=== PATIENT | male | born 1980 | race African-American/Black ===

== ENCOUNTER 2018-07-02 22:02 | Emergency (ER) | payer OTHER ==
--- NOTE | 2018-07-02 22:58 | ED ---
Neurological HPI - HPI Summary HPI Summary: This patient is a 38 year old M brought in by EMS and police [facility] after what the guards report as a seizure. They describe and extended post-ictal period. The guards state the patient has not been responsive since 2129 tonight. Upon inspection of the records provided by the [facility] the patient has a history of seizures and takes Keppra and dilantin. Level 5 Caveat: Exam limited due to the patient being unresponsive. - History of Current Complaint Chief Complaint: EDSeizure Stated Complaint: SEIZURE Hx Obtained From: Other: - see hpi Onset/Duration: Started hours ago, Still Present Timing: Constant Onset Severity: Moderate Current Severity: Moderate Pain Intensity: 0 Character: Other: - Level 5 Caveat: Exam limited due to the patient being unresponsive. - Allergy/Home Medications Allergies/Adverse Reactions: Allergies Allergy/AdvReac Type Severity Reaction Status Date / Time risperidone [From Risperdal] Allergy Unknown Verified 07/03/18 01:56 Reaction Details PMH/Surg Hx/FS Hx/Imm Hx Opthamlomology History: Denies: Hx Eye Prosthesis Neurological History: Reports: Hx Seizures Infectious Disease History: No Infectious Disease History: Denies: Traveled Outside the [place] in Last 30 Days - Family History Known Family History: Negative: Seizure Disorder - Social History Alcohol Use: None Hx Substance Use: No Substance Use Type: Reports: None Hx Tobacco Use: No Smoking Status (MU): Never Smoked Tobacco Review of Systems - ROS Summary Review of Systems Summary: Level 5 Caveat: Exam limited due to the patient being unresponsive. Neurological: Other - seizure. All Other Systems Reviewed And Are Negative: No Physical Exam - Summary Physical Exam Summary: VITAL SIGNS: Reviewed. GENERAL: Patient is a well-developed and nourished male HEAD AND FACE: No signs of trauma. No ecchymosis, hematomas or skull depressions. N EYES: PERRLA, EOMI x 2, No injected conjunctiva, no nystagmus. EARS: Ear canals and tympanic membranes are within normal limits. MOUTH: Oropharynx within normal limits. NECK: Supple, trachea is midline, no adenopathy, no JVD, no carotid bruit, no c- spine tenderness, neck with full ROM. CHEST: Symmetric, LUNGS: Clear to auscultation bilaterally. No wheezing or crackles. CVS: Regular rate and rhythm, S1 and S2 present, no murmurs or gallops appreciated. ABDOMEN: Soft,. No signs of distention. No rebound no guarding, and no masses palpated. Bowel sounds are normal. EXTREMITIES: FROM in all major joints, no edema, no cyanosis or clubbing. NEURO: Alert but is not answering questions. He is not following commands SKIN: Dry and warm Triage Information Reviewed: Yes Vital Signs On Initial Exam: Initial Vitals Temp Pulse Resp BP Pulse Ox 97.9 F 79 16 131/77 97 07/02/18 22:15 07/02/18 22:15 07/02/18 22:15 07/02/18 22:15 07/02/18 22:15 Vital Signs Reviewed: Yes Completion Of Physical Exam Limited Due To: Level 5 Diagnostics - Vital Signs Vital Signs Temp Pulse Resp BP Pulse Ox 07/02/18 22:15 97.9 F 79 16 131/77 97 - Laboratory Result Diagrams: 07/02/18 22:54 07/02/18 22:54 Lab Statement: Any lab studies that have been ordered have been reviewed, and results considered in the medical decision making process. Course/Dx - Course Assessment/Plan: This patient is a 38 year old M brought in by EMS and police [facility] after what the guards report as a seizure. They describe and extended post -ictal period. The guards state the patient has not been responsive since 2129. Upon inspection of the records provided by the penit[facility]iary the patient has a history of seizures and takes Keppra and dilantin. Level 5 Caveat: Exam limited due to the patient being unresponsive. No seizure activity in the ED . Therapeutic dilantin level, however recommend an increase to 300 BID. The patient did improve in the ED and was walking and talking without difficulty. Bloodwork, UA, and toxicology screen obtained. In the ED course the patient was given dilantin. Patient will be discharged and follow up from neurology. The patient is agreeable with this plan. - Diagnoses Provider Diagnoses: Seizure Discharge - Sign-Out/Discharge Documenting (check all that apply): Patient Departure - Discharge Plan Condition: Stable Disposition: HOME Patient Education Materials: Epilepsy (ED) Referrals: Aaliyah Gomez MD [Medical Doctor] - Additional Instructions: recommend increasing the dilantin dose to 300mg twice a day. Follow up with neurology tomorrow. RETURN TO THE EMERGENCY DEPARTMENT FOR CHANGING OR WORSENING SYMPTOMS. - Billing Disposition and Condition Condition: STABLE Disposition: Home - Attestation Statements Document Initiated by Tenzin: Yes Documenting Scribe: Latrell Montoya Provider For Whom Tenzin is Documenting (Include Credential): Luna Bautista MD Scribe Attestation: Latrell Sanchez , scribed for Luna Bautista MD on 07/03/18 at 0159. Scribe Documentation Reviewed: Yes Provider Attestation: The documentation as recorded by the Latrell adams accurately reflects the service I personally performed and the decisions made by meFranc MD Status of Scribe Document: Viewed
[2018-07-02 23:05] LABS: ABS Basophils 0 10^3/ul (0-0.2); ABS Eosinophils 0.1 10^3/ul (0-0.6); ABS Monocytes 0.5 10^3/ul (0-0.8); ABS Neutrophils 2.2 10^3/ul (1.5-7.7); ABS Nucleated RBC 0 10^3/ul; Eosinophil % 1.3 %; Hematocrit 40 % (42-52); Hemoglobin 13.6 g/dl (14.0-18.0); Lymphocyte % 41.7 %; Mean Corpuscular HGB Conc 34 g/dl (31-36); Mean Corpuscular Hemoglobin 32 pg (27-31); Mean Corpuscular Volume 97 fL (80-94); Mean Platelet Volume 7.3 fL (7.4-10.4); Nucleated Red Blood Cells % 0; Platelet Count 201 10^3/ul (150-450); Red Blood Count 4.19 10^6/ul (4.00-5.40); Red Cell Distribution Width 13 % (10.5-15); White Blood Count 4.7 10^3/ul (3.5-10.8)
[2018-07-02 23:13] LABS: INR 0.99 (0.77-1.02)
[2018-07-02 23:22] LABS: EGFR Non-African American 73.8 (>60)
[2018-07-03 01:14] LABS: Urine Appearance Cloudy; Urine Blood Negative (Negative); Urine Color Yellow; Urine Ketones Negative (Negative); Urine Protein Negative (Negative); Urine Specific Gravity 1.023 (1.010-1.030); Urine Urobilinogen Negative (Negative)
[2018-07-03] MEDS ORDERED: Phenytoin CAP(*) 100 MG CAP.ER PO ONE (01:32)
[2018-07-03 02:16] VITALS: BP 146/75
== END 2018-07-03 02:10 | disposition home or self-care (01) ==
LOC: ED 22:02
DX: G40.909 Epilepsy, unspecified, not intractable, without status epilepticus (principal); Z88.8 Allergy status to other drugs, medicaments and biological substances
CPT/HCPCS: 36415; 80053; 80185; 80307; 81003; 82550; 83605; 83735; 85025; 85610; 85730; 99282; A9270-GY

== ENCOUNTER → 2018-08-16 10:04 | Emergency (ER) | payer OTHER ==
--- NOTE | 2018-08-16 10:16 | ED ---
Neurological HPI - HPI Summary HPI Summary: 38 yo male presents to ED brought in by corrections. Pt tells me that he is unsure why he is here. He says that he went to take his morning meds at the provider's office and was told that his left eye was "weird" and was then told he had to come to the hospital. According to the call from the MEETING/EVENT PLANNER at the [facility], she was examining the pt and noticed some left eye nystagmus and pt seemed to stare into the distance without responding for one episode lasting 5-10 seconds. Pt does not recall any of this. He has no symptoms currently. At baseline he is wheelchair bound due to LE injury and inability to move his legs , however sensations are intact. He denies fever, recent illness, headache, dizziness, vision changes, SOB, chest pain, palpitations, abdominal pain, n/v/d/ c, dysuria, or drug use. Denies change in mood or behavior. No SI/HI. He tells me that he has a PMHx of seizures, right ear deafness, right eye "blindness", and [id number]-[id number]. - History of Current Complaint Stated Complaint: MHE Time Seen by Provider: 08/16/18 10:11 Hx Obtained From: Patient Current Severity: None - Allergy/Home Medications Allergies/Adverse Reactions: Allergies Allergy/AdvReac Type Severity Reaction Status Date / Time risperidone [From Risperdal] Allergy Unknown Verified 07/03/18 01:56 Reaction Details Home Medications: Home Medications Albuterol HFA INHALER* [Ventolin HFA Inhaler*] 2 puff INH QID PRN 08/16/18 [ History Confirmed 08/16/18] Beclomethasone 80 MCG MDI(NF) [Qvar 80 MCG MDI(NF)] 1 puff INH BID 08/16/18 [ History Confirmed 08/16/18] Docusate CAP* [Colace Cap*] 100 mg PO BID 08/16/18 [History Confirmed 08/16/18] Ibuprofen TAB* [Motrin TAB* 600 MG] 600 mg PO BID PRN 08/16/18 [History Confirmed 08/16/18] Phenytoin CAP(*) [Dilantin CAP(*)] 300 mg PO BID 08/16/18 [History Confirmed ] Zafirlukast (NF) [Accolate (NF)] 20 mg PO BID 08/16/18 [History Confirmed ] levETIRAcetam TAB* [Keppra TAB*] 1,500 mg PO BID 08/16/18 [History Confirmed ] PMH/Surg Hx/FS Hx/Imm Hx Endocrine/Hematology History: Denies: Hx Blood Disorders, Hx Diabetes Cardiovascular History: Denies: Hx Coronary Artery Disease, Hx Hypertension, Hx Myocardial Infarction Respiratory History: Denies: Hx Asthma, Hx Chronic Obstructive Pulmonary Disease (COPD) History: Denies: Hx Renal Disease Musculoskeletal History: Reports: Other Musculoskeletal History - Wheelchair bound. Cannot move LEs Sensory History: Reports: Hx Legally Blind - right eye, Hx Hearing Problem - right ear Denies: Hx Eye Prosthesis Opthamlomology History: Denies: Hx Eye Prosthesis Neurological History: Reports: Hx Seizures, Other Neuro Impairments/Disorders - CMT Denies: Hx CVA, Hx Headaches, Hx Migraine - Family History Known Family History: Negative: Seizure Disorder - Social History Alcohol Use: None Hx Substance Use: No Substance Use Type: Reports: None Hx Tobacco Use: No Smoking Status (MU): Never Smoked Tobacco Review of Systems Constitutional: Negative Eyes: Negative ENT: Negative Cardiovascular: Negative Respiratory: Negative Gastrointestinal: Negative Genitourinary: Negative Musculoskeletal: Negative Skin: Negative Neurological: Negative Psychological: Normal All Other Systems Reviewed And Are Negative: Yes Physical Exam - Summary Physical Exam Summary: GENERAL: NAD. WDWN. Comfortably lying in stretcher watching TV. SKIN: No rashes, sores, ulcers, masses, lesions. HEENT: Head: AT/NC. No raccoon eyes or battles sign. Eyes: PERRLA. EOM intact. Conjunctiva clear without inflammation or discharge. Ears: Hearing grossly normal. TMs intact, no bulging, erythema, or edema. Nose: Nasal mucosa pink and moist. NTTP maxillary and frontal sinus. Throat: Posterior oropharynx without exudates, erythema, or tonsillar enlargement. Uvula midline. NECK: Supple. Nontender. No lymphadenopathy. CHEST: CTAB. No r/r/w. No accessory muscle use. Breathing comfortably and in no distress. CV: RRR. Without m/r/g. Pulses intact. Brisk cap refill. MSK: FROM in B/L UEs NEURO: A&Ox3. 3 word recall, remote, recent memory, ability to follow 2-step directions, and attention intact. CN: II: Peripheral lynn intact LEFT EYE. Vision normal LEFT EYE. III, IV, : EOMI. LEFT EYE mild horizontal nystagmus. PERRLA. V: Sensations intact and symmetric. Opens mouth and clenches teeth. VII: No facial asymmetry. Forehead wrinkles. Grins, shuts eyes, frowns, puffs cheeks. VIII: Hearing intact to finger rub. IX, X: Swallows and coughs. Uvula midline. XI: Shrugs shoulders. Turns head against resistance. XII: No tongue deviation Finger -to-nose are intact. Gait with normal base. Romberg: maintains balance, no pronator drift. Normal speech. No facial drooping. PSYCH: Age appropriate behavior. GCS 15 Triage Information Reviewed: Yes Vital Signs On Initial Exam: Vital Signs: Temp Pulse Resp BP Pulse Ox 97.8 F 69 16 119/70 98 08/16/18 10:16 08/16/18 10:16 08/16/18 10:16 08/16/18 10:16 08/16/18 10:16 Laboratory Tests 08/16/18 08/16/18 08/16/18 11:05 11:13 11:13 WBC 6.9 RBC 4.33 Hgb 14.0 Hct 42 MCV 96 H MCH 32 H MCHC 34 RDW 13 Plt Count 218 MPV 7.3 L Neut % (Auto) 62.9 Lymph % (Auto) 23.8 Bates % (Auto) 10.4 Eos % (Auto) 1.6 Baso % (Auto) 1.3 Absolute Neuts (auto) 4.3 Absolute Lymphs (auto) 1.6 Absolute Monos (auto) 0.7 Absolute Eos (auto) 0.1 Absolute Basos (auto) 0.1 Absolute Nucleated RBC 0 Nucleated RBC % 0 Sodium 140 Potassium 4.6 Chloride 108 Carbon Dioxide 29 Anion Gap 3 BUN 8 Creatinine 1.05 Est GFR ( Amer) 96.2 Est GFR (Non-Af Amer) 79.5 BUN/Creatinine Ratio 7.6 L Glucose 91 Calcium 9.0 Total Bilirubin 0.40 AST 25 ALT 36 Alkaline Phosphatase 57 Total Protein 6.9 Albumin 4.0 Globulin 2.9 Albumin/Globulin Ratio 1.4 Salicylates < 2.50 Urine Opiates Screen Ur Barbiturates Screen Phenytoin < 2.5 L Ur Phencyclidine Scrn Ur Amphetamines Screen U Benzodiazepines Scrn Urine Cocaine Screen U Cannabinoids Screen 08/16/18 13:00 WBC RBC Hgb Hct MCV MCH MCHC RDW Plt Count MPV Neut % (Auto) Lymph % (Auto) Bates % (Auto) Eos % (Auto) Baso % (Auto) Absolute Neuts (auto) Absolute Lymphs (auto) Absolute Monos (auto) Absolute Eos (auto) Absolute Basos (auto) Absolute Nucleated RBC Nucleated RBC % Sodium Potassium Chloride Carbon Dioxide Anion Gap BUN Creatinine Est GFR ( Amer) Est GFR (Non-Af Amer) BUN/Creatinine Ratio Glucose Calcium Total Bilirubin AST ALT Alkaline Phosphatase Total Protein Albumin Globulin Albumin/Globulin Ratio Salicylates Urine Opiates Screen None detected Ur Barbiturates Screen None detected Phenytoin Ur Phencyclidine Scrn None detected Ur Amphetamines Screen None detected U Benzodiazepines Scrn None detected Urine Cocaine Screen None detected U Cannabinoids Screen None detected Vital Signs Reviewed: Yes Diagnostics - Laboratory Result Diagrams: 08/16/18 11:13 08/16/18 11:13 Lab Statement: Any lab studies that have been ordered have been reviewed, and results considered in the medical decision making process. 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 Facial Paresis-Pt to Smile & Close Eyes or Grimace Symmetry: Normal/Symmetrical Motor Function - Right Arm: No Drift-Holds 10 Seconds Motor Function - Left Arm: No Drift-Holds 10 Seconds Motor Function - Right Leg: Effort Against Jupiter - Baseline Motor Function - Left Leg: Effort Against Jupiter - Baseline Limb Ataxia-Must be out of Proportion to Weakness Present: Absent Sensory (Use Pinprick to Test Arms/Legs/Trunk/Face): Normal Best Language (Describe Picture, Name Items): No Aphasia Dysarthria (Read Several Words): Normal Extinction and Inattention: No Abnormality Total Score: 5 NIH Stroke Scale Comment: His abnormalities are his baseline - per pt Re-Evaluation - Re-Evaluation First Eval Re-Evaluation Time: 13:31 Change: Unchanged Comment: No change. Remains without complaints or symptoms. Course/Dx - Course Course Of Treatment: CT: IMPRESSION: NO ACUTE INTRACRANIAL PATHOLOGY. Discussed case with MEETING/EVENT PLANNER at [facility] and pt will follow up with her for low dilantin level. His exam remained unremarkable and he remained asymptomatic throughout his stay in the ED. His labwork is WNL except previously mention dilantin level. Of note, nystagmus is a notable side effect of dilantin and this could be due to his medication. Pt wishes to be discharged at this time and has no complaints. Will have him f/u with the MEETING/EVENT PLANNER at [facility]. Advised to return to the ED if he has any new or changing symptoms. - Diagnoses Provider Diagnoses: Seizures, Horizontal nystagmus, CMT (Vcdzdmo-Pozgw-Tanoy disease) Discharge - Sign-Out/Discharge Documenting (check all that apply): Patient Departure - Discharge Plan Condition: Stable Disposition: HOME Patient Education Materials: Phenytoin (By mouth), Epilepsy (DC) Referrals: Eddie ESPOSITO,Raz Grewal [Primary Care Provider] - Additional Instructions: If you develop a fever, shortness of breath, chest pain, new or worsening symptoms - please call your PCP or go to the ED. Your exam, imaging, and labwork were all normal/negative today. Your Dilantin level was low on today's labwork - please follow up with the MEETING/EVENT PLANNER at [facility] for further management of this. - Billing Disposition and Condition Condition: STABLE Disposition: Home
[2018-08-16 11:27] LABS: ABS Basophils 0.1 10^3/ul (0-0.2); ABS Eosinophils 0.1 10^3/ul (0-0.6); ABS Lymphocytes 1.6 10^3/ul (1.0-4.8); ABS Monocytes 0.7 10^3/ul (0-0.8); ABS Neutrophils 4.3 10^3/ul (1.5-7.7); ABS Nucleated RBC 0 10^3/ul; Eosinophil % 1.6 %; Hematocrit 42 % (42-52); Lymphocyte % 23.8 %; Mean Corpuscular HGB Conc 34 g/dl (31-36); Mean Corpuscular Hemoglobin 32 pg (27-31); Mean Corpuscular Volume 96 fL (80-94); Mean Platelet Volume 7.3 fL (7.4-10.4); Nucleated Red Blood Cells % 0; Platelet Count 218 10^3/ul (150-450); Red Blood Count 4.33 10^6/ul (4.00-5.40); Red Cell Distribution Width 13 % (10.5-15); White Blood Count 6.9 10^3/ul (3.5-10.8)
[2018-08-16 11:50] LABS: Albumin/Globulin Ratio 1.4 (1-3); BUN/Creatinine Ratio 7.6 (8-20); EGFR Non-African American 79.5 (>60); Globulin 2.9 g/dL (2-4); Potassium 4.6 mmol/L (3.5-5.0); Total Bilirubin 0.4 mg/dL (0.2-1.0); Total Protein 6.9 g/dL (6.4-8.9)
[2018-08-16 13:12] LABS: Phenytoin < 2.5 mcg/mL (10-20); Salicylate < 2.50 mg/dL (<30)
[2018-08-16 13:59] LABS: Barbiturates Urine Screen None Detected (None Detect); Benzodiazepine Urine Screen None Detected (None Detect); Urine Cannabinoids Screen None Detected (None Detect)
[2018-08-16 14:30] VITALS: BP 0/0
== END | disposition home or self-care (01) ==
LOC: ED 10:04
DX: G40.909 Epilepsy, unspecified, not intractable, without status epilepticus (principal); G60.0 Hereditary motor and sensory neuropathy; H91.91 Unspecified hearing loss, right ear; H54.7 Unspecified visual loss; H55.00 Unspecified nystagmus
CPT/HCPCS: 36415; 70450; 80053; 80185; 80307; 80329; 85025; 99283; G0480